=== PATIENT | male | born 1960 | race Caucasian/White ===

== ENCOUNTER 2017-10-13 18:48 | Emergency (ER) | payer OTHER ==
[2017-10-13] MEDS ORDERED: LET GEL TOPICAL 1 EA SYR TP ONE (19:07)
[2017-10-13] MEDS: LET GEL TOPICAL 1 EA SYR TP ONE (19:13)
[2017-10-13] MEDS: IBUPROFEN 600 MG TAB PO ONE (19:14)
[2017-10-13] MEDS: TDAP ADULT 0.5 ML INJ (BOOSTRIX) IM ONE (19:15)
--- NOTE | 2017-10-13 20:46 | EDPHY ---
H & P Time Seen by Provider: 10/13/17 18:53 HPI/ROS: 57-year-old male presents complaining of laceration to his right thumb on the dorsal aspect. He was doing woodworking when this occurred. Would working as a hobby for he works card runner as a registered nurse. Review of systems As per HPI General no fever no chills no weakness HEENT no eye pain no eye discharge. No eye redness, no sore throat Respiratory no cough, no shortness of breath Cardiac no chest pain, no peripheral edema GI no abdominal pain, no diarrhea, no constipation, no nausea, no vomiting no flank pain, no hematuria, no dysuria Musculoskeletal no myalgias, no joint pain Heme no easy bruising, no easy bleeding Endo no polyuria, no polydipsia Skin no rashes, no pruritus Neuro no syncope, no dizziness, no headaches Psych is no suicidal ideation, no homicidal ideation Past Medical/Surgical History: Hypertension Social History: Alcohol occasionally Smoking Status: Former smoker Physical Exam: 57-year-old male alert and oriented no acute distress nontoxic appearance Atraumatic normocephalic No JVD No respiratory distress Vital signs stable Right upper extremity Right hand-full range of motion Right thumb at dorsal aspect 1.5 cm linear laceration crossing the D IP joint No evidence of foreign body I cannot visualize the joint capsule with flexion Constitutional: Initial Vital Signs Heart Rate 73 10/13/17 19:31 Respiratory Rate 14 10/13/17 19:31 Blood Pressure 159/104 H 10/13/17 19:31 O2 Sat (%) 94 10/13/17 19:31 O2 Delivery Mode Room Air O2 (L/minute) 36.9 Allergies/Adverse Reactions: latex Allergy (Verified 10/13/17 19:29) Home Medications: Medication Instructions Recorded Aspirin 11/05/15 Duloxetine HCl 10/13/17 Losartan Potassium 10/13/17 Medical Decision Making Procedures: Procedure note-laceration The wound was irrigated with copious amounts of saline. Lidocaine 2% was used for local anesthetic. 5 simple interrupted sutures were placed. 4-0 Prolene was used. Bleeding controlled Patient tolerated procedure well. ED Course/Re-evaluation: Patient seen and evaluated for right thumb laceration Impression 1.5 cm simple laceration to dorsum of the thumb No evidence of foreign body no evidence of tendon or capsule involvement Plan Sutured repair Tetanus updated Thumb splinted Discharge advised to have sutures removed in 10-12 days Differential Diagnosis: Differential diagnosis considered but not limited to: Thumb laceration, skin avulsion - Data Points Medications Given: Discontinued Medications Diphtheria/Tetanus/Acell Pertussis (Boostrix) 0.5 ml IM .ONCE ONE Stop: 10/13/17 19:03 Last Admin: 10/13/17 19:15 Dose: 0.5 ml Ibuprofen (Motrin) 600 mg PO EDNOW ONE Stop: 10/13/17 19:03 Last Admin: 10/13/17 19:14 Dose: 600 mg Tetracaine/Epinephrine/Lidocaine (Let Gel Topical) 1 ea TP EDNOW ONE Stop: 10/13/17 19:14 Last Admin: 10/13/17 19:13 Dose: 1 ea Departure - Departure Disposition: Home, Routine, Self-Care Clinical Impression: Laceration of thumb Condition: Good Instructions: Care For Your Stitches (ED), Finger Laceration (ED) Additional Instructions: Return for suture removal in 10 -12 days. Referrals: Zaira Kapoor MD [Primary Care Provider] - As per Instructions
[2017-10-13 21:19] VITALS: BP 150/100
== END 2017-10-13 21:00 | disposition home or self-care (01) ==
LOC: CED 18:48
DX: S61.011A Laceration without foreign body of right thumb without damage to nail, initial encounter (principal); I10 Essential (primary) hypertension; Z23 Encounter for immunization; Z79.82 Long term (current) use of aspirin; Z87.891 Personal history of nicotine dependence; X58.XXXA Exposure to other specified factors, initial encounter; Y92.69 Other specified industrial and construction area as the place of occurrence of the external cause
CPT/HCPCS: L3925

== ENCOUNTER → 2018-04-22 | Outpatient (CLI) | payer OTHER | LOC: FIMAGING 10:10 | PROVIDERS: ATTEND Orthopaedic Surgery | DX: M75.92 Shoulder lesion, unspecified, left shoulder (principal); M12.812 Other specific arthropathies, not elsewhere classified, left shoulder ==